=== PATIENT | male | born 1970 | race African-American/Black ===

== ENCOUNTER → 2019-03-24 | Outpatient (CLI) | payer OTHER ==
[~2019-03-24] MED LIST: CATHETER FLUSH 10 ML SYR IV PRN; HOLD METFORMIN - RECEIVED CONTRAST 20 ML VIAL IV SCH; IOHEXOL 350 MG/ML 100 ML (OMNIPAQUE 350) VIAL IV ONE; NS 100 ML (IVPB) BAG IV ONE
--- NOTE | 2019-03-24 09:45 | Diagnostic Imaging Report ---
EXAMINATION: Pelvis and left hip at 0918 hours. INDICATION: Left hip pain. A single AP view of the pelvis and AP and lateral views of the left hip were obtained. COMPARISON: There are no prior studies available for comparison. FINDINGS: There is no fracture, dislocation or acute bony abnormality evident. 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 There is only mild degenerative disease of the sacroiliac joints. There is opacification of both ureters and the urinary bladder from the iodinated contrast used for the CT abdomen/pelvis exam performed prior to the study. The soft tissues are otherwise unremarkable. IMPRESSION: 1. There is no evidence for an acute bony abnormality. 2. 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 3. If further imaging is desired, then CT of the pelvis would be recommended. Dictated by: Dictated on workstation # [id number]
--- NOTE | 2019-03-24 10:00 | Diagnostic Imaging Report ---
PROCEDURE: CT abdomen and pelvis with contrast. TECHNIQUE: Multiple contiguous axial images were obtained through the abdomen and pelvis after administration of intravenous contrast. Auto Exposure Controls were utilized during the CT exam to meet ALARA standards for radiation dose reduction. INDICATION: Severe left hip pain. COMPARISON: There are no prior CT examinations available for comparison. FINDINGS: The plain film examination of the pelvis performed in conjunction with the study showed there is fairly severe degenerative disease involving both hip joints but failed to show any sign of an acute abnormality. On this study there is no fracture visualized. There is degenerative disease of both hip joints and mild degenerative disease of the sacroiliac joints. The reconstructed parasagittal images show the vertebral body heights and alignment to be generally within normal limits. There is minimal retrolisthesis of L5 with respect to S1. There is no evidence for a high-grade central stenosis involving the lumbar or lower thoracic spine. The liver, spleen, pancreas, gallbladder, kidneys, aorta and inferior vena cava show no sign of an acute abnormality. There do appear to be a few subcentimeter cysts involving both kidneys. There is a 1.3 cm rounded area of low density associated with left adrenal gland. This has Hounsfield units in the 10-30 range. I suspect that this is a benign process such as an adrenal adenoma. If further evaluation is desired, then MRI would be recommended. If the MRI exam is not performed and if there are no previous studies available for comparison, then a short-term (3-month) follow-up CT abdomen exam should be obtained. The right adrenal gland is unremarkable. The stomach is not well-distended and consequently difficult to assess. The urinary bladder and prostate gland are grossly unremarkable. There is no pelvic mass or free fluid collection evident. There are surgical clips about the cecum and the appendix may be surgically absent. Correlation with the patient's surgical history would be recommended. The images through the lung bases show a loculated 3.5 x 7.0 cm fluid collection along the medial aspect of the right lower lobe. This is of uncertain etiology. The right lung bases are otherwise clear and well aerated as is the left lung. IMPRESSION: 1. There is no evidence for an acute bony abnormality of the pelvis. There is degenerative disease involving both hip joints. If further study is desired, then MRI would be recommended. 2. There is no acute abnormality of the abdomen or pelvis. 3. The small low density nodule associated with the left adrenal gland is of uncertain etiology although most likely benign. Recommendations as above. 4. The loculated fluid collection in the right lung base is an unusual finding. This fluid collection could also be reevaluated if the follow-up CT abdomen exam from the left adrenal nodule is performed in 3 months. Dictated by: Dictated on workstation # [id number]
== END ==
LOC: RAD 08:33
PROVIDERS: ATTEND Nurse Practitioner Family
DX: M16.0 Bilateral primary osteoarthritis of hip (principal); J98.4 Other disorders of lung; R10.31 Right lower quadrant pain
CPT/HCPCS: 74177

== ENCOUNTER → 2019-05-09 | Outpatient (CLI) | payer BC ==
--- NOTE | 2019-05-09 17:00 | Diagnostic Imaging Report ---
INDICATION: Chest pain. FINDINGS: PA and lateral views. The lungs are well aerated and clear. Heart is not enlarged. No pulmonary edema. No hilar adenopathy. Aorta is ectatic. Retrocardiac density consistent with diaphragmatic hernia demonstrated on CT scan of 03/24/2019. IMPRESSION: 1. No acute abnormalities. 2. Retrocardiac density consistent with diaphragmatic hernia. Dictated by: Dictated on workstation # [id number]
== END ==
LOC: LAB 16:37
PROVIDERS: ATTEND Nurse Practitioner Family
DX: R05 Cough (principal); R07.9 Chest pain, unspecified
CPT/HCPCS: 71046

== ENCOUNTER → 2019-06-05 | Outpatient (CLI) | payer BC ==
[~2019-06-05] VITALS: Ht 167 cm; Wt 111.0 kg
[~2019-06-05] MED LIST changes: +AMLO10TA7 PO; +ASPI-586 PO; +CITA20TA9 PO; +DIAZ10TA3 PO; -HOLD METFORMIN - RECEIVED CONTRAST 20 ML VIAL IV SCH; +HYDR12.5 PO; -IOHEXOL 350 MG/ML 100 ML (OMNIPAQUE 350) VIAL IV ONE; +LOSA100T57 PO; +MTP25TSR PO; +NITROGLYCERIN 0.4 MG SL TABS BTL 25'S SL PRN; -NS 100 ML (IVPB) BAG IV ONE; +OSEL75CA15 PO; +OXYC1TAB16 PO; +SULF-11 PO
[2019-06-05 09:01] VITALS: BP 156/109
--- NOTE | 2019-06-05 14:47 | STRESS TEST ---
DATE OF SERVICE: 06/05/2019 EXERCISE MYOVIEW STRESS REPORT REFERRING PHYSICIAN: Dr. Mckee. Baseline heart rate is 86. Baseline blood pressure 173/116. Baseline EKG is sinus rhythm with no ischemic changes. In summary, the patient was injected with 10.9 mCi of technetium-99 Myoview and the resting images were obtained. Then, the patient started exercising with a baseline heart rate, blood pressure and EKG mentioned above. The patient was able to exercise for a total of 7 minutes on standard Brian protocol. With peak exercise level, the patient was injected with 29.1 mCi of technetium-99 Myoview. EKG was showing minimal nondiagnostic changes. Blood pressure was 246/78. During recovery, heart rate and blood pressure returned to baseline. EKG returned to baseline. The resting and stress images were reviewed and compared in the short axis, horizontal long axis, and vertical long axis views. Review of the images showed motion artifact with diaphragmatic attenuation and a fixed defect involving the inferior wall and inferolateral wall. SSS is 9, SDS 2, TID value 1.03. On the gated images, the left ventricle appeared to be in normal size with diffuse left ventricular hypokinesia, calculated ejection fraction 41%, the patient started to have chest pain in recovery. EKG did not show any acute changes. CONCLUSION: 1. Fair exercise tolerance for a total of 7 minutes on standard Brian protocol, total of 8.5 METS achieving 100% of maximum expected heart rate. 2. Severe hypertensive response to exercise with peak blood pressure 246/78, returned to baseline during recovery. 3. Minimal nondiagnostic EKG changes with exercise, returned to baseline during recovery. 4. Diaphragmatic attenuation with motion artifact affecting the quality of the images. There is fixed defect involving the whole inferior wall and inferolateral wall with subtle reversibility at the anterolateral wall. 5. Normal left ventricular size with diffuse left ventricular hypokinesia, calculated ejection fraction 41%. Job ID: [id number] DocumentID: [id number] Dictated Date: 06/05/2019 12:22:58 Director Veterinary Date: 06/05/2019 14:46:08 Dictated By: NILESH MONTALVO MD
== END ==
LOC: CARD 07:30
PROVIDERS: ATTEND Internal Medicine Cardiovascular Disease
DX: I10 Essential (primary) hypertension (principal); E78.2 Mixed hyperlipidemia; R06.09 Other forms of dyspnea; E66.9 Obesity, unspecified; Z82.49 Family history of ischemic heart disease and other diseases of the circulatory system
CPT/HCPCS: 78452; 93005; 93017

== ENCOUNTER 2019-06-06 20:53 | Outpatient (CLI) | payer BC ==
[2019-06-07] MEDS ORDERED: LOSA100T57 PO (11:41)
[2019-06-07] MEDS ORDERED: AMLO10TA7 PO (11:41)
[2019-06-07] MEDS ORDERED: SULF-11 PO (11:41)
[2019-06-07] MEDS ORDERED: MTP25TSR PO (11:41)
[2019-06-07] MEDS ORDERED: HYDR12.5 PO (11:41)
[2019-06-07] MEDS ORDERED: OXYC1TAB16 PO (11:43)
[2019-06-07] MEDS ORDERED: CITA20TA9 PO (11:43)
[2019-06-07] MEDS ORDERED: DIAZ10TA3 PO (11:43)
[2019-06-07] MEDS ORDERED: ASPI-586 PO (11:43)
[2019-06-07] MEDS ORDERED: OSEL75CA15 PO (11:43)
== END 2019-06-07 06:56 | disposition home or self-care (01) ==
LOC: SLEEP 20:53
PROVIDERS: ATTEND Internal Medicine Cardiovascular Disease
DX: G47.33 Obstructive sleep apnea (adult) (pediatric) (principal)
CPT/HCPCS: 95811

== ENCOUNTER → 2019-06-06 | Outpatient (CLI) | payer BC ==
[~2019-06-06] MED LIST changes: -CATHETER FLUSH 10 ML SYR IV PRN; +MIDAZOLAM 5 MG/5 ML (VERSED) VIAL ONE; -NITROGLYCERIN 0.4 MG SL TABS BTL 25'S SL PRN; +fentaNYL INJECTION 100 MCG/2 ML AMP ONE
== END ==
LOC: CARD 13:33
PROVIDERS: ATTEND Internal Medicine Cardiovascular Disease
DX: I11.9 Hypertensive heart disease without heart failure (principal); E78.2 Mixed hyperlipidemia; R06.09 Other forms of dyspnea; E66.9 Obesity, unspecified; Z82.49 Family history of ischemic heart disease and other diseases of the circulatory system
CPT/HCPCS: 93306

== ENCOUNTER 2019-06-07 10:56 | Day surgery (SDC) | payer BC ==
[2019-06-07] VITALS (10 sets, daily range): BP systolic 127–170; BP diastolic 81–115
[~2019-06-07] VITALS: Ht 168 cm; Wt 110.0 kg
[2019-06-07] MEDS ORDERED: LIDOCAINE 2% VISCOUS 15 ML UDC ONE (11:00)
[2019-06-07] MEDS ORDERED: NS IV 1000 ML 1,000 ML ONE (11:00)
[2019-06-07] MEDS ORDERED: HEParin (CATH LAB) 2,000 ML IV ONE (11:01)
[2019-06-07] MEDS ORDERED: LIDOCAINE 1% INJ 20 ML 20 ML VIAL ONE (11:01)
[2019-06-07] MEDS ORDERED: NS IV 1000 ML 1,000 ML IV SCH ×2 (11:15→15:43)
--- NOTE | 2019-06-07 11:25 | Diagnostic Imaging Report ---
Indication: Coronary artery disease Portable chest 11:21 AM Heart size and pulmonary vascularity are normal. Lungs are clear. There are no effusions or pneumothoraces. IMPRESSION: Negative chest Dictated by: Dictated on workstation # [id number]
[2019-06-07] MEDS ORDERED: MTP25TSR PO (11:41)
[2019-06-07] MEDS ORDERED: AMLO10TA7 PO (11:41)
[2019-06-07] MEDS ORDERED: HYDR12.5 PO (11:41)
[2019-06-07] MEDS ORDERED: SULF-11 PO (11:41)
[2019-06-07] MEDS ORDERED: LOSA100T57 PO (11:41)
[2019-06-07] MEDS ORDERED: OSEL75CA15 PO (11:43)
[2019-06-07] MEDS ORDERED: OXYC1TAB16 PO (11:43)
[2019-06-07] MEDS ORDERED: DIAZ10TA3 PO (11:43)
[2019-06-07] MEDS ORDERED: CITA20TA9 PO (11:43)
[2019-06-07] MEDS ORDERED: ASPI-586 PO (11:43)
[2019-06-07 11:46] LABS: HEMOGLOBIN 13.1 G/DL (13.3-17.7); MEAN PLATELET VOLUME 9.4 FL (7.4-10.4); RED CELL DISTRIBUTION WIDTH 15.7 % (10.0-14.5); WHITE BLOOD COUNT 5.5 10^3/uL (4.3-11.0)
[2019-06-07 11:52] LABS: INR 0.9 (0.8-1.4); PROTHROMBIN TIME PATIENT 12.9 SEC (12.2-14.7)
[2019-06-07 12:01] LABS: ALANINE AMINOTRANSFERASE 38 U/L (0-55); ALBUMIN 4.4 GM/DL (3.2-4.5); ALKALINE PHOSPHATASE 78 U/L (40-136); BILIRUBIN,TOTAL 0.4 MG/DL (0.1-1.0); BUN/CREATININE RATIO 12; CALCIUM 9.5 MG/DL (8.5-10.1); CARBON DIOXIDE 24 MMOL/L (21-32); CHLORIDE 103 MMOL/L (98-107); CHOLESTEROL 202 MG/DL (< 200); CREATININE SERUM 1.35 MG/DL (0.60-1.30); GFR ESTIMATED > 60; GLUCOSE 123 MG/DL (70-105); HDL CHOLESTEROL 44 MG/DL (40-60); POTASSIUM 4.2 MMOL/L (3.6-5.0); SODIUM 140 MMOL/L (135-145); TOTAL PROTEIN 8.6 GM/DL (6.4-8.2); TRIGLYCERIDES 139 MG/DL (<150); VLDL CHOLESTEROL 28 MG/DL (5-40)
[2019-06-07] MEDS ORDERED: MIDAZOLAM 5 MG/5 ML (VERSED) VIAL ONE (15:44)
[2019-06-07] MEDS ORDERED: fentaNYL INJECTION 100 MCG/2 ML AMP ONE (15:44)
--- NOTE | 2019-06-07 15:44 | Discharge Inst-Post CATH ---
Discharge Inst-CATH/EP Problems Reviewed?: Yes Post Cardiac Cath/EP D/C Inst Follow Up/Plan Appointment with Dr. Joseph's office in 4 weeks <b>CARDIAC CATH/EP PROCEDURE DISCHARGE INSTRUCTIONS</b> ACTIVITY * Go Home directly and rest. * Limit activity of the leg (or wrist if it was used) for 7 days including aerobics, swimming, jogging, bicycling, etc. * Restrict stair-climbing for 7 days if possible, if not, climb up with your non-cath leg, then bring together on the same step. * Avoid lifting, pushing, pulling or excessive movement of the affected extremity for 7 days. * Customary sexual activity may be resumed after 2 days-use caution not to use a position that strains or causes pain to the affected extremity. * No driving for 24 hours. * NO SMOKING. * Avoid straining for bowel movements for 7 days. * Gentle walking on level ground is allowed. * Returning to work will depend on the type of procedure and the results. Your doctor will discuss this with you. CALL YOUR DOCTOR FOR ANY OF THE FOLLOWING: *If bleeding from the puncture site occurs- Apply gentle pressure to site with clean cloth and call your doctor or EMS. * If a knot or lump forms under the skin, increases in size, or causes pain. * If bruising appears to be worsening or moving further down your leg instead of disappearing. * Temperature above 101 F. CARE OF YOUR GROIN INCISION; * Bruising or purple discoloration of the skin near the puncture site is common. * You may shower only, no bathtub bathing for 5 days. Be careful to avoid slipping as your leg may feel stiff. * If a closure device was used on your femoral artery, please see the attached guide regarding care of the device and your leg. * Leave dressing on FOR 24 hours. CARE OF YOUR WRIST INCISION; * Bruising or purple discoloration of the skin near the puncture site is common. * You may shower. * DO NOT submerge wrist. * Leave dressing on FOR 24 hours. NILESH JOSEPH MD Jun 07, 2019 15:44
[2019-06-07] MEDS ORDERED: PATIENT MAY USE OWN MEDS, ALL PO SCH (15:45)
--- NOTE | 2019-06-07 15:45 | Cardiac Procedure Note-CS/ASA ---
Pre-Procedure Note Pre-Op Procedure Note H&P Reviewed The H&P was reviewed, patient examined and no changes noted. Date H&P Reviewed: Jun 07, 2019 Time H&P Reviewed: 14:00 Conscious Sedation Pre-Proced Time 14:00 ASA Score 3 For ASA 3 and 4: Consider anesthesia and medical clearance. Also, for patients with a history of failed moderate sedation consider anesthesia. Airway Lungs Heart ASA score ASA 1: a normal healthy patient ASA 2: a patient with a mild systemic disease (mid diabetes, controlled hypertension, obesity x ASA 3: a patient with a severe systemic disease that limits activity (angina, COPD, prior Myocardial infarction) ASA 4: a patient with an incapacitating disease that is a constant threat to life (CHF, renal failure) ASA 5: a moribund patient not expected to survive 24 hrs. (ruptured aneurysm) ASA 6: a declared brain- patient whose organs are being harvested. For emergent operations, add the letter E after the classification Mallampati Classification Grade 3 Sedation Plan Analgesia, Amnesia, Plan communicated to team members, Discussed options with patient/fam, Discussed risks with patient/fam The patient is an appropriate candidate to undergo the planned procedure, sedation, and anesthesia. The patient immediately re-assessed prior to indication. NILESH MONTALVO MD Jun 07, 2019 15:45
--- NOTE | 2019-06-07 15:48 | Cardiac Cath Report ---
Cardiac Cath Report Physician (s)/Casino Games Dealer (s) Physician NILESH MONTALVO MD Pre-Procedure Diagnosis Pre-Procedure Diagnosis: Coronary artery disease, malignant hypertension Post-Procedure Note Procedure Start Date: Jun 07, 2019 Name of Procedure: Left heart catheterization Selective right renal angiogram Abdominal aortogram Findings/Procedure Note PROCEDURE NOTE: 49 years old gentleman with severe hypertension, coronary artery disease with abnormal stress test, scheduled for cardiac catheterization and renal). After explaining the procedure to the patient, all pros and cons were explained, all questions were answered. The patient signed the consent and then he was placed on the cardiac catheterization laboratory. Groin was prepped SL fashion local anesthesia was used. Sheath placed in the right femoral artery. Danni right and left catheter were used to access the coronary system. Danni right catheter advanced to the left ventricular cavity, pressure was measured, pullback LV to aorta was done, advanced to the renal artery and I was able to do selective right renal angiogram, could not find the left renal artery, did abdominal aortogram with the pigtail catheter. At the end of the procedure the sheath was removed. Closure device was used FINDINGS: Hemodynamics LV 145/9, end-diastolic pressure of 9 Aorta 148/76 mean of 111 ANATOMY: Left Main is free of obstructive disease Left Anterior Descending has mild disease tortuous artery nonobstructive disease Left Circumflex has mild disease nonobstructive disease Right Coronory Artery has no significant obstructive disease LV Gram was not done, pressure was measured Aorta evaluation done with abdominal aortogram which showed normal abdominal aorta, no dissection or aneurysm, normal renal arteries, SMA and CRISTIANA CONCLUSION: 1. Mild coronary artery disease nonobstructive disease 2. Normal left ventricular end-diastolic pressure 3. Normal renal arteries and abdominal aorta DISCUSSION AND RECOMMENDATION: Medical therapy is returned in no intervention is needed Anesthesia Type: Conscious Sedation Estimated blood loss (mL): 25 ml Contrast Amount: 65 ml Total Radiation Dose: 802 mGy Post-Procedure Diagnosis Post-operative diagnosis: Chest pain Malignant hypertension Coronary artery disease Hyperlipidemia NILESH MONTALVO MD Jun 07, 2019 15:48
--- NOTE | 2019-06-07 16:10 | NUR ---
Dr Joseph notified of elevated blood pressure and order obtained to let pt take his home blood pressure medications. pt given his medications from his own home supply. losartan 100mg, Metoprol 25mg and amlodipine 10 mg.
--- NOTE | 2019-06-07 21:00 | NUR ---
PATIENT ATE DINNER AND TOLERATED WELL. PATIENT AMBULATED IN SALDIVAR AND TOLERATED WELL. PATIENT URINATED 400ML. PATIENT DENIES CHEST PAIN AND RIGHT GROIN PAIN AT THIS TIME. PATIENT VERBALIZES UNDERSTANDING OF DISCHARGE INSTRUCTIONS. IV REMOVED. CATHETER INTACT. PATIENT TAKEN DOWN TO AWAITING PRIVATE VEHICLE IN WHEELCHAIR. BROTHER TO DRIVE PATIENT HOME.
== END 2019-06-07 21:00 ==
LOC: CATH 10:56 → ICU 16:00 → CATH 21:00
PROVIDERS: ATTEND Internal Medicine Cardiovascular Disease
DX: I25.10 Atherosclerotic heart disease of native coronary artery without angina pectoris (principal); I10 Essential (primary) hypertension; E78.2 Mixed hyperlipidemia; M06.9 Rheumatoid arthritis, unspecified; K21.9 Gastro-esophageal reflux disease without esophagitis; Z79.899 Other long term (current) drug therapy; Z87.891 Personal history of nicotine dependence
CPT/HCPCS: 36415; 71045; 75625; 80053; 80061; 85027; 85610; 85730; 87081; 93458

== ENCOUNTER → 2019-06-10 | Outpatient (CLI) | payer BC ==
[~2019-06-10] MED LIST changes: -MIDAZOLAM 5 MG/5 ML (VERSED) VIAL ONE; -fentaNYL INJECTION 100 MCG/2 ML AMP ONE
[2019-06-10 15:42] LABS: BODY SURFACE AREA 2.15
[2019-06-10 15:43] LABS: CREATININE CRCL 1.35 MG/DL (0.60-1.30)
[2019-06-14 00:37] LABS: CREATININE CAT FR MG/DL 107 mg/dL; EPINEPHRINE RATIO 3 ug/g CRT (0-20)
== END ==
LOC: LAB 14:58
PROVIDERS: ATTEND Internal Medicine Cardiovascular Disease
DX: Z01.89 Encounter for other specified special examinations (principal)
CPT/HCPCS: 36415; 82384; 82575; 83497; 83835; 84585

== ENCOUNTER → 2019-11-07 | Outpatient (CLI) | payer BC ==
--- NOTE | 2019-11-07 12:29 | Diagnostic Imaging Report ---
PROCEDURE: US Renal/Bladder. TECHNIQUE: Multiple real-time grayscale and color Doppler images were obtained over the kidneys in various projections bilaterally. INDICATION: Hypertension. Stage II chronic kidney disease. COMPARISON: CT abdomen and pelvis on 03/24/2019. FINDINGS: Right: The right kidney measures 12.4 cm in length. Renal cortical thickness and echogenicity are within normal limits. There is no evidence of calculi, solid focal mass or hydronephrosis. No perinephric fluid collections are identified. Left: The left kidney measures 11.5 cm in length. Renal cortical thickness and echogenicity are within normal limits. There is no evidence of calculi, solid focal mass or hydronephrosis. No perinephric fluid collections are identified. There is no abdominal ascites. Views of the pelvis demonstrate a mildly distended urinary bladder. Both ureteral jets are visualized. No large intraluminal filling defect or calculi are identified. The peak systolic velocity within the abdominal aorta measures 81 cm/s. The proximal right renal artery is not well seen due to overlying bowel gas. The mid aspect of the right renal artery measures 99 cm/s peak systolic velocity and the distal measures 87 cm/s. The renal artery to aorta ratio on the right is 1.2. The resistive indices within the arcuate arteries range from 0.56-0.6. The proximal and mid portions of the left renal artery are not well seen due to overlying bowel gas. The peak systolic velocity within the distal left renal artery measures 44 cm/s with a renal artery to aorta ratio of 0.5. The resistive indices in the arcuate arteries on the left range from 0.63-0.65. IMPRESSION: 1. No sonographic evidence of renal artery stenosis. Please note however the proximal renal arteries are not well visualized due to overlying bowel gas. If continued concern, consider CTA of the abdomen and pelvis to further evaluate. 2. No acute sonographic abnormalities in the kidneys. No hydronephrosis or renal mass. Dictated by: Dictated on workstation # [id number]
== END ==
LOC: RAD 08:57
PROVIDERS: ATTEND Internal Medicine Nephrology
DX: I12.9 Hypertensive chronic kidney disease with stage 1 through stage 4 chronic kidney disease, or unspecified chronic kidney disease (principal); N18.2 Chronic kidney disease, stage 2 (mild)
CPT/HCPCS: 76770; 93975

== ENCOUNTER 2020-01-05 05:37 | Outpatient (RCR) | payer BC ==
[~2020-01-05] VITALS: Ht 170.2 cm; Wt 112.3 kg
[~2020-01-05 05:37] MED LIST changes: +CLON1PAT33 TD; +HYDR12.56 PO; +METO50TA7 PO; +NITR0.4T39 SL; +OMEP40CA27 PO; +PREG75CA75 PO; +TMSL.4C PO
== END 2020-01-05 13:04 | disposition home or self-care (01) ==
LOC: PREOP 05:37
PROVIDERS: ATTEND Surgery
DX: Z01.818 Encounter for other preprocedural examination (principal); Z01.812 Encounter for preprocedural laboratory examination; Z12.11 Encounter for screening for malignant neoplasm of colon; K21.9 Gastro-esophageal reflux disease without esophagitis; Z20.828 Contact with and (suspected) exposure to other viral communicable diseases
CPT/HCPCS: 87635

== ENCOUNTER 2020-01-09 12:52 | Day surgery (SDC) | payer BC ==
[~2020-01-09] VITALS: Ht 170.2 cm; Wt 112.3 kg
[2020-01-09] MEDS ORDERED: LACTATED RINGERS 1,000 ML IV ONE (12:55)
[2020-01-09] MEDS ORDERED: LACTATED RINGERS 1,000 ML IV STA (12:57)
[2020-01-09 13:11] VITALS: BP 165/103
[2020-01-09] MEDS ORDERED: MIDAZOLAM 2 MG/2 ML (VERSED) VIAL ONE (13:27)
[2020-01-09] MEDS ORDERED: PROPOFOL INJECTION 50 ML IV ONE (13:27)
[2020-01-09] MEDS ORDERED: HURRICAINE EXT TUBE (BENZOCAINE) ONE (13:47)
--- NOTE | 2020-01-09 13:49 | Progress Note-Pre Operative ---
Pre-Operative Progress Note H&P Reviewed The H&P was reviewed, patient examined and no changes noted. Date Seen by Provider: Jan 09, 2020 Time Seen by Provider: 13:49 Date H&P Reviewed: Jan 09, 2020 Time H&P Reviewed: 13:49 Pre-Operative Diagnosis: gerd epigastric abd pain, screening colon FELIZ COFFEY DO Jan 09, 2020 13:49
[2020-01-09 14:15] VITALS: BP 122/65
[2020-01-09 14:20] VITALS: BP 144/77
--- NOTE | 2020-01-09 14:21 | Progress Note-Post Operative ---
Post-Operative Progess Note Surgeon (s)/As400 Consultant (s) Surgeon FELIZ COFFEY DO As400 Consultant: na Pre-Operative Diagnosis gerd epigastric abd pain, screening colon Post-Operative Diagnosis hiatal hernia, ileocecal ulcer, rectal polyp Procedure & Operative Findings Date of Procedure 01/09/20 Procedure Performed/Findings EGD c biopsies, colonoscopy c cold biopsies and cold polypectomy Anesthesia Type per [employer] Estimated Blood Loss Estimated blood loss (mL): scant Specimens/Packing Specimens Removed biopsies of antrum and GE junction; biopsies of ileocecal valve and ileocecal ulcer, cold polypectomy of rectal polyp FELIZ COFFEY DO Jan 09, 2020 14:21
[2020-01-09 14:25] VITALS: BP 164/89
--- NOTE | 2020-01-09 14:30 | Anesthesia-General Post-Op ---
MAC Patient Condition Mental Status/LOC: Same as Preop Cardiovascular: Satisfactory Nausea/Vomiting: Absent Respiratory: Satisfactory Pain: Controlled Complications: Absent Post Op Complications Complications None Follow Up Care/Instructions Patient Instructions None needed. Anesthesiology Discharge Order Discharge Order Patient is doing well, no complaints, stable vital signs, no apparent adverse anesthesia problems. No complications reported per nursing. MAGAN ZEPEDA CRNA Jan 09, 2020 14:30
[2020-01-09 14:55] VITALS: BP 166/80
[2020-01-09 15:00] VITALS: BP 166/80
[2020-01-09] MEDS ORDERED: HURRICAINE EXT TUBE (BENZOCAINE) XX ONE (15:15)
--- NOTE | 2020-01-09 23:03 | OPERATIVE REPORT ---
DATE OF SERVICE: 01/09/2020 PREOPERATIVE DIAGNOSES: Gastroesophageal reflux disease, epigastric abdominal pain, screening colonoscopy. POSTOPERATIVE DIAGNOSES: Hiatal hernia, reflux esophagitis, rectal polyp, ulceration of the ileocecal valve. SURGEON: Feliz Fernandez DO ESTIMATED BLOOD LOSS: Scant. PROCEDURE: EGD with biopsies, colonoscopy with cold biopsy of ileocecal valve ulcer and ileocecal valve, and cold polypectomy of rectal polyp. INDICATIONS: The patient is a 49-year-old male who has been having some epigastric abdominal pain and GERD symptoms. He is also due for screening colonoscopy. He understands risks and benefits of procedure and wished to proceed with procedure. Consent was signed in the chart. DESCRIPTION OF PROCEDURE: The patient was taken to the endoscopy suite, placed in left lateral recumbent position. Timeout was performed. Scope was inserted in mouth, down the esophagus, stomach and into the duodenum without difficulty. There were no polyps, masses or ulcerations within the duodenum. Scope was slowly retracted back into the stomach where there were no polyps, masses or ulcerations. No erythematous changes. Scope was retroflexed noting a hiatal hernia, no other pathology. Scope was returned to its normal position. Biopsy of the antrum was obtained. Scope was then slowly retracted back and at the GE junction, biopsy was obtained. No polyps, masses or ulcerations. There were some erythematous changes consistent with and some slight mucosal changes that suggestive of reflux esophagitis. Scope was then slowly retracted back until completely removed. Digital rectal exam was performed. No palpable polyps, masses or ulcerations. Scope was inserted in the rectum and advanced all the way to cecum with minimal difficulty. Prep was adequate. At the ileocecal valve, there were a small ulceration present. Biopsy of this area was obtained. There is also some slight erythematous changes around the ileum or the ileocecal valve, which a cold biopsy was obtained as well. There were no polyps or masses present. Scope was then slowly retracted back. No polyps, masses or ulcerations within the ascending, transverse, descending and sigmoid colon. In the rectum, a very small polyp was present, which cold biopsy polypectomy was performed. Once in the rectum, scope was retroflexed noting no other pathology. Scope was returned to its normal position, slowly withdrawn until completely removed. The patient tolerated procedure well without any complications. He was taken to recovery room in stable condition. RECOMMENDATIONS: The patient will follow up in the office in 2 weeks, if any issues before that be seen at that time. Due to the ulceration in the cecum, we will await biopsies results at that time. If no pathology noted, we would consider repeat colonoscopy in 3 months for reevaluation. Job ID: [id number] DocumentID: [id number] Dictated Date: 01/09/2020 14:58:25 Wildlife Conservationist Date: 01/09/2020 23:03:04 Dictated By: FELIZ FERNANDEZ DO
== END 2020-01-09 15:00 | disposition home or self-care (01) ==
LOC: ENDO 12:52
PROVIDERS: ATTEND Surgery
DX: Z12.11 Encounter for screening for malignant neoplasm of colon (principal); K29.50 Unspecified chronic gastritis without bleeding; K63.5 Polyp of colon; K44.9 Diaphragmatic hernia without obstruction or gangrene; K21.0 Gastro-esophageal reflux disease with esophagitis; K62.1 Rectal polyp; I10 Essential (primary) hypertension; G47.33 Obstructive sleep apnea (adult) (pediatric); E78.2 Mixed hyperlipidemia; I20.9 Angina pectoris, unspecified; E66.9 Obesity, unspecified; Z68.38 Body mass index [BMI] 38.0-38.9, adult; Z79.899 Other long term (current) drug therapy; Z87.891 Personal history of nicotine dependence

== ENCOUNTER 2020-01-30 09:49 | Outpatient (RCR) | payer BC ==
[~2020-01-30 09:49] MED LIST changes: +AMLO-251 PO; -AMLO10TA7 PO
== END 2020-04-29 | disposition home or self-care (01) ==
LOC: LAB 09:49
PROVIDERS: ATTEND Surgery
DX: K29.70 Gastritis, unspecified, without bleeding (principal); R19.7 Diarrhea, unspecified
CPT/HCPCS: 87328; 87329

== ENCOUNTER → 2020-05-30 | Outpatient (CLI) | payer BC ==
[~2020-05-30] MED LIST changes: +CATHETER FLUSH 10 ML SYR IV PRN; +HOLD METFORMIN - RECEIVED CONTRAST 20 ML VIAL IV SCH; +IOHEXOL 350 MG/ML 100 ML (OMNIPAQUE 350) VIAL IV ONE; +NS 100 ML (IVPB) BAG IV ONE; +RT-ALBUTEROL SULF 2.5 MG/3 ML PRE-MIX VIAL INH ONE
[2020-05-30 13:15] LABS: CREATININE SERUM 1.04 MG/DL (0.60-1.30); GFR ESTIMATED > 60
[2020-05-30 13:16] LABS: BUN/CREATININE RATIO 10
--- NOTE | 2020-05-30 15:45 | Diagnostic Imaging Report ---
PROCEDURE: CT chest with contrast only. TECHNIQUE: Multiple contiguous axial images were obtained through the chest after administration of intravenous contrast. Auto Exposure Controls were utilized during the CT exam to meet ALARA standards for radiation dose reduction. INDICATION: Dyspnea. There are no prior CT chest examinations available for comparison. The CT abdomen/pelvis exam of 03/24/2019 did note an atypical fluid collection in the medial aspect of the right lung base. This area measured 3.5 x 7.0 cm. On this exam the fluid in this area has decreased and is now estimated to be 2.1 x 4.1 cm. This may actually represent fluid within the mesenteric fat near the diaphragm. At any rate it is decreased in size and is a favorable finding. The lungs are generally clear. There is no evidence for failure, pneumonia or for a pleural effusion. The heart is borderline enlarged. There are no coronary artery calcifications noted. The aorta is not abnormally dilated. The pulmonary arteries were not well opacified and consequently difficult to assess for a pulmonary embolus. There is no definite defect within the pulmonary arteries to indicate a pulmonary embolus. There is no mediastinal or hilar adenopathy. The thyroid gland was partially obscured by streak artifact. The bone windows show no sign of a fracture or of a destructive lesion. The previous CT abdomen/pelvis exam did note a small low density nodule associated with the left adrenal gland. This measured 1.3 cm. On this exam this nodule now measures 1.8 cm. This nodule still has a generally benign appearance. However would recommend that MRI be performed to better characterize this finding as it has increased in size since the previous study. There is no acute abnormality of the visualized upper abdomen. The bone windows are unremarkable for a fracture or for a destructive lesion. IMPRESSION: 1. There is borderline cardiomegaly but there is no evidence for an acute cardiopulmonary abnormality. 2. The fluid collection within the mesenteric fat near the right lung base seen previously has diminished in size. 3. The small left adrenal nodule noted on the prior exam does measure somewhat larger on this study. This finding still has a generally benign appearance but MRI would be recommended to better characterize this nodule. Dictated by: Dictated on workstation # [id number]
== END ==
LOC: RT 12:33
PROVIDERS: ATTEND Nurse Practitioner Family
DX: E27.8 Other specified disorders of adrenal gland (principal); G47.33 Obstructive sleep apnea (adult) (pediatric); R06.00 Dyspnea, unspecified; F17.211 Nicotine dependence, cigarettes, in remission
CPT/HCPCS: 36415; 71260; 82565; 84520; 94060; 94726; 94729

== ENCOUNTER 2020-06-13 08:00 | Outpatient (RCR) | payer BC ==
[~2020-06-13 08:00] MED LIST changes: -CATHETER FLUSH 10 ML SYR IV PRN; -HOLD METFORMIN - RECEIVED CONTRAST 20 ML VIAL IV SCH; -IOHEXOL 350 MG/ML 100 ML (OMNIPAQUE 350) VIAL IV ONE; -NS 100 ML (IVPB) BAG IV ONE; -RT-ALBUTEROL SULF 2.5 MG/3 ML PRE-MIX VIAL INH ONE
[2020-06-13] MEDS ORDERED: LISI-729 PO (12:24)
[2020-06-13] MEDS ORDERED: PANT40TA52 PO (12:24)
[2020-06-13] MEDS ORDERED: CLN.2T PO (12:24)
[2020-06-13] MEDS ORDERED: METF-397 PO (12:24)
== END 2020-09-11 | disposition home or self-care (01) ==
LOC: LAB 08:00
PROVIDERS: ATTEND Surgery
DX: K29.70 Gastritis, unspecified, without bleeding (principal); R19.7 Diarrhea, unspecified
CPT/HCPCS: 87328; 87329

== ENCOUNTER 2020-06-14 05:27 | Outpatient (RCR) | payer BC ==
[~2020-06-14] VITALS: Ht 172.7 cm; Wt 113.5 kg
[~2020-06-14 05:27] MED LIST changes: +CLN.2T PO; +LISI-729 PO; +METF-397 PO; +PANT40TA52 PO
== END 2020-06-14 12:34 | disposition home or self-care (01) ==
LOC: PREOP 05:27
PROVIDERS: ATTEND Surgery
DX: Z01.812 Encounter for preprocedural laboratory examination (principal); Z20.822 Contact with and (suspected) exposure to COVID-19; Z87.19 Personal history of other diseases of the digestive system
CPT/HCPCS: 87635

== ENCOUNTER 2020-06-18 08:03 | Day surgery (SDC) | payer BC ==
[2020-06-18] VITALS (8 sets, daily range): BP systolic 112–166; BP diastolic 58–95
[~2020-06-18] VITALS: Ht 172.7 cm; Wt 113.5 kg
[2020-06-18] MEDS ORDERED: LACTATED RINGERS 1,000 ML IV STA (08:05)
[2020-06-18] MEDS ORDERED: LACTATED RINGERS 1,000 ML IV ONE (08:09)
--- NOTE | 2020-06-18 08:22 | Progress Note-Pre Operative ---
Pre-Operative Progress Note H&P Reviewed The H&P was reviewed, patient examined and no changes noted. Date Seen by Provider: Jun 18, 2020 Time Seen by Provider: 08:22 Date H&P Reviewed: Jun 18, 2020 Time H&P Reviewed: 08:22 Pre-Operative Diagnosis: hx cecal ulcer, hx blood per rectum FELIZ COFFEY DO Jun 18, 2020 08:22
[2020-06-18] MEDS ORDERED: PROPOFOL INJECTION 50 ML IV ONE ×2 (08:32→09:17)
[2020-06-18] MEDS ORDERED: MIDAZOLAM 2 MG/2 ML (VERSED) VIAL ONE (08:32)
--- NOTE | 2020-06-18 09:48 | Progress Note-Post Operative ---
Post-Operative Progess Note Surgeon (s)/Fixed Interest Dealer (s) Surgeon FELIZ COFFEY DO Fixed Interest Dealer: na Pre-Operative Diagnosis hx cecal ulcer, hx blood per rectum Post-Operative Diagnosis normal colon Procedure & Operative Findings Date of Procedure 06/18/20 Procedure Performed/Findings colonoscopy Anesthesia Type per programs director Estimated Blood Loss Estimated blood loss (mL): none Specimens/Packing Specimens Removed na FELIZ COFFEY DO Jun 18, 2020 09:48
--- NOTE | 2020-06-18 09:49 | Discharge Inst-Simple/Standard ---
Discharge Inst-Standard Patient Instructions/Follow Up Plan of Care/Instructions/FU: 5 years Rebecca If any issues before that be seen at that time. Activity as Tolerated: Yes Discharge Diet: Regular Diet FELIZ COFFEY DO Jun 18, 2020 09:49
--- NOTE | 2020-06-18 14:19 | OPERATIVE REPORT ---
DATE OF SERVICE: 06/18/2020 PREOPERATIVE DIAGNOSIS: History of cecal ulcer and history of blood per rectum. POSTOPERATIVE DIAGNOSIS: Normal colon. PROCEDURE: Colonoscopy. SURGEON: Feliz Fernandez DO ANESTHESIA: Per COMPLIANCE FIELD TECHNICIAN. ESTIMATED BLOOD LOSS: None. COMPLICATIONS: None. INDICATIONS: The patient is a 50-year-old male with history of cecal ulcer and history of blood per rectum, was discussed for reevaluation and he understands risks and benefits and wishes to proceed with colonoscopy. Consent was signed in the chart. DESCRIPTION OF PROCEDURE: The patient was taken to the endoscopy suite, placed in left lateral recumbent position. Timeout was performed. Scope was inserted in the rectum. Digital rectal exam was performed. There were no palpable polyps, masses or ulcerations. Scope was inserted in the rectum, advanced all the way to cecum with minimal difficulty. Prep was adequate with irrigation and suction. Scope was then slowly retracted back. There were no polyps, masses or ulcerations within the cecum, ascending, transverse, descending and sigmoid colon. Once in the rectum, scope was inserted and retracted multiple times, noting no other pathology except for some slight internal hemorrhoids. Scope was then slowly retracted back until completely removed. The patient tolerated procedure well without any complications, taken to recovery room in stable condition. RECOMMENDATIONS: The patient will need repeat colonoscopy in 5 years. Any issues before that be seen at that time to consider reevaluation with colonoscopy. Job ID: [id number] DocumentID: [id number] Dictated Date: 06/18/2020 09:51:35 Cooling Pan Tender Date: 06/18/2020 14:18:37 Dictated By: FELIZ FERNANDEZ DO
--- NOTE | 2020-06-20 12:37 | Anesthesia-General Post-Op ---
MAC Significant Intra-Op Events Notes postop addendum for mac anesthesia on 06/18/20 at 1000 Patient Condition Mental Status/LOC: Same as Preop Cardiovascular: Satisfactory Nausea/Vomiting: Absent Respiratory: Satisfactory Pain: Controlled Complications: Absent Post Op Complications Complications None Follow Up Care/Instructions Patient Instructions None needed. Anesthesiology Discharge Order Discharge Order Patient is doing well, no complaints, stable vital signs, no apparent adverse anesthesia problems. No complications reported per nursing. PAULINO WALTERS CRNA Jun 20, 2020 12:37
== END 2020-06-18 10:40 ==
LOC: ENDO 08:03
PROVIDERS: ATTEND Surgery
DX: K64.8 Other hemorrhoids (principal); I10 Essential (primary) hypertension; E11.9 Type 2 diabetes mellitus without complications; G47.33 Obstructive sleep apnea (adult) (pediatric); K21.00 Gastro-esophageal reflux disease with esophagitis, without bleeding; M19.90 Unspecified osteoarthritis, unspecified site; I20.9 Angina pectoris, unspecified; Z87.891 Personal history of nicotine dependence; Z90.49 Acquired absence of other specified parts of digestive tract; Z90.89 Acquired absence of other organs; Z79.899 Other long term (current) drug therapy; Z79.1 Long term (current) use of non-steroidal anti-inflammatories (NSAID); Z79.891 Long term (current) use of opiate analgesic; Z80.1 Family history of malignant neoplasm of trachea, bronchus and lung; Z98.890 Other specified postprocedural states; Z87.11 Personal history of peptic ulcer disease
CPT/HCPCS: 82962

== ENCOUNTER → 2020-06-24 | Outpatient (CLI) | payer BC | LOC: LABNPT 06:04 | PROVIDERS: ATTEND Orthopaedic Surgery | DX: Z01.812 Encounter for preprocedural laboratory examination (principal); Z20.822 Contact with and (suspected) exposure to COVID-19 ==

== ENCOUNTER → 2020-06-25 | Outpatient (CLI) | payer BC | LOC: LABNPT 08:48 | PROVIDERS: ATTEND Orthopaedic Surgery | DX: Z01.812 Encounter for preprocedural laboratory examination (principal); Z20.822 Contact with and (suspected) exposure to COVID-19 ==